=== PATIENT | female | born 1970 | race African-American/Black ===

== ENCOUNTER 2018-08-07 06:22 | Inpatient (IN) | payer BC ==
[2018-08-04 10:04] VITALS: BMI 33.8
[2018-08-07] MEDS ORDERED: HEPARIN NA (PORCINE) 5,000 UNITS/ML 1ML VIAL ONE (07:44)
[2018-08-07] MEDS ORDERED: THROMBIN (BOVINE) 5,000 UNIT VIAL TP ONE ×2 (07:44→10:07)
[2018-08-07] MEDS ORDERED: BENZOIN TINCTURE SWABSTICK TP ONE (07:44)
[2018-08-07] MEDS ORDERED: MIDAZOLAM HCL 2 MG/2 ML SINGLE DOSE VIAL ONE ×2 (07:59)
[2018-08-07] MEDS ORDERED: ROCURONIUM BROMIDE 50 MG/5 ML VIAL ONE (08:00)
[2018-08-07] MEDS ORDERED: fentaNYL CITRATE 250 MCG/5 ML VIAL ONE (08:00)
[2018-08-07] MEDS ORDERED: PROPOFOL 20 ML ONE ×20 (08:00→10:40)
[2018-08-07] MEDS ORDERED: SUCCINYLCHOLINE CHLORIDE 200 MG/10 ML VIAL ONE ×2 (08:03)
[2018-08-07] MEDS ORDERED: NEOSTIGMINE METHYLSULFATE 0.5 MG/1 ML - 10 ML MDV ONE (08:54)
[2018-08-07] MEDS ORDERED: ceFAZolin SODIUM 1 GM VIAL IVPB ONE (08:55)
[2018-08-07] MEDS ORDERED: VANCOMYCIN 1,000 MG VIAL (RESTRICTED TO ID ONLY) IVPB ONE (09:05)
[2018-08-07] MEDS ORDERED: ONDANSETRON 4 MG/2 ML VIAL ONE (09:27)
[2018-08-07] MEDS ORDERED: DEXAMETHASONE SOD PHOSPHATE 4 MG/1 ML VIAL ONE (09:27)
[2018-08-07] MEDS ORDERED: LIDOCAINE HCL/PF 2% SDV 5ML VIAL ONE (09:27)
[2018-08-07] MEDS ORDERED: TRANEXAMIC ACID 1000 MG/10 ML VIAL ONE (09:27)
[2018-08-07] MEDS ORDERED: ceFAZolin SODIUM 1 GM VIAL ONE (09:27)
[2018-08-07] MEDS ORDERED: GELATIN, ABSORBABLE 12-7MM EACH SPONGE TP ONE (10:08)
--- NOTE | 2018-08-07 12:22 | PN ---
Progress Note (short form) - Note Progress Note: 48F s/p C5-C6 anterior cervical discectomy and instrumented fusion POD #0. -Admit to ICU x 24 hrs. for airway observation; OK to discharge home or downgrade to floor 08/08/2018 if airway stable. -Maintain head of bed 45-60 degrees. -Pain medication: per anaesthesia team; oral meds (oxycodone preferred), no HIDE AND SKIN COLERER ; NO NSAID's. -DVT PPx: -Mechanical only: JULIETA's, SCD's. -Post-op Ancef x 2 doses. -f/u AM labs. -Incentive spirometry. -PT/OT/Rehab, OOB. -WBAT B/L UE & LE. -d/c Damian catheter at midnight; f/u TOV (8 hours max). -Keep dressing clean & dry. -No heavy lifting (>5 lbs), bending or twisting x 6 months post op. -Start with soft diet; advance diet as tolerated. -B/L UE & LE NV checks. -Care per ICU & primary medical hospitalist teams. -Discharge planning: f/u [facility] [place] office 08/17/2018; call for appointment; . Vernon Pitts MD (Orthopaedic Surgery).
--- NOTE | 2018-08-07 12:27 | OP ---
Operative Note - Note: Operative Date: 08/07/18 Pre-Operative Diagnosis: 1. C5-C6 intervertebral disc disorder with: a. Radiculopathy. b. Myelopathy Operation: 1. C5-C6 anterior cervical discectomy. 2. C5, C6 partial corpectomies. 3. C5-C6 anterior instrumentation. 4. C5-C6 anterior arthrodesis. 5. Bone autograft. 6. Bone allograft. 7. Intra-operative neural monitoring. 8. Intra-operative biplanar fluoroscopy Findings: After C5-C6 discectomy, residual indentation on anterior cervical spinal cord due to chronic stenosis. Implants: Cage: Fortilink Tetrafuse #8. Plate: Slimplicity 14mm. Screws: 4 x 3.5x12mm Surgeon: Vernon Pitts Coordinating Producer: Kev Pitts Anesthesiologist/BUSINESS APPLICATIONS SPECIALIST: Philomena Barragan MD Specimens Removed: C5-C6 disc Estimated Blood Loss (mls): 75 Fluid Volume Replaced (mls): 2,000 (Crystalloid) Operative Report Dictated: Yes
[2018-08-07] MEDS ORDERED: LACTATED RINGERS SOLUTION 1,000 ML IV SCH ×3 (12:30→16:12)
[2018-08-07] MEDS ORDERED: ONDANSETRON 4 MG/2 ML VIAL IVPUSH PRN ×2 (12:30→12:59)
[2018-08-07] MEDS ORDERED: oxyCODONE HCL 5 MG TABLET PO PRN (12:30)
[2018-08-07] MEDS ORDERED: HYDROmorphone HCL CARPU-JECT 2 MG/1 ML DISP.SYRIN SQ PRN (12:41)
[2018-08-07] MEDS ORDERED: DESFLURANE GAS 240 ML BOTTLE IH ONE (13:18)
--- NOTE | 2018-08-07 14:26 | CONSULT ---
Consultation: REQUESTING PROVIDER:Dr. Pitts CONSULT REQUEST: We have been asked to medically evaluate this patient for post- op airway monitoring. HISTORY OF PRESENT ILLNESS: Patient is a 48 year old female with no significant past medical history, R- hand dominant, presented with pain and weakness of the right arm at the C5-C6 dermatome, and C5 dermatome on the left. Patient was seen by Dr. Pitts and was diagnosed with cervical disc disorder at C5-C6 with radiculopathy. Patient is POD 0 C5-C6 anterior cervical discectomy and instrumented fusion. Currently patient is still sedated, responsive to voice, able to follow commands and denies any pain. REVIEW OF SYSTEMS: CONSTITUTIONAL: Absent: fever, chills, diaphoresis, generalized weakness, malaise, loss of appetite, weight change HEENT: Absent: rhinorrhea, nasal congestion, throat pain, throat swelling, difficulty swallowing, mouth swelling, ear pain, eye pain, visual changes CARDIOVASCULAR: Absent: chest pain, syncope, palpitations, irregular heart rate, lightheadedness , peripheral edema RESPIRATORY: Absent: cough, shortness of breath, dyspnea with exertion, orthopnea, wheezing, stridor, hemoptysis GASTROINTESTINAL: Absent: abdominal pain, abdominal distension, nausea, vomiting, diarrhea, constipation, melena, hematochezia GENITOURINARY: Absent: dysuria, frequency, urgency, hesitancy, hematuria, flank pain, genital pain MUSCULOSKELETAL: Absent: myalgia, arthralgia, joint swelling, back pain, neck pain SKIN: Absent: rash, itching, pallor HEMATOLOGIC/IMMUNOLOGIC: Absent: easy bleeding, easy bruising, lymphadenopathy, frequent infections ENDOCRINE: Absent: unexplained weight gain, unexplained weight loss, heat intolerance, cold intolerance NEUROLOGIC: Absent: headache, focal weakness or paresthesias, dizziness, unsteady gait, seizure, mental status changes, bladder or bowel incontinence PSYCHIATRIC: Absent: anxiety, depression, suicidal or homicidal ideation, hallucinations. PHYSICAL EXAMINATION Vital Signs - 24 hr 08/07/18 08/07/18 08/07/18 07:18 07:24 12:31 Temperature 98.2 F 98 F Pulse Rate 69 89 Respiratory 20 12 Rate Blood Pressure 146/92 140/78 O2 Sat by Pulse 100 100 Oximetry (%) 08/07/18 08/07/18 08/07/18 12:45 13:00 13:15 Temperature Pulse Rate 91 H 79 69 Respiratory 14 16 18 Rate Blood Pressure 145/79 150/84 155/92 O2 Sat by Pulse 100 100 100 Oximetry (%) 08/07/18 13:30 Temperature Pulse Rate 88 Respiratory 18 Rate Blood Pressure 160/87 O2 Sat by Pulse 100 Oximetry (%) GENERAL: sedated, responds to voice and follows commands, in no acute distress. HEAD: Normal with no signs of trauma. EYES: PERRLA, EOMI, sclera anicteric, conjunctiva clear. EARS, NOSE, THROAT: Dry mucous membranes. NECK: +dressing, clean dry and intact on the anterior neck LUNGS: Breath sounds equal, clear to auscultation bilaterally. HEART: Regular rate and rhythm, normal S1 and S2 without murmur, rub or gallop. ABDOMEN: Soft, nontender, not distended, normoactive bowel sounds. UPPER EXTREMITIES: 2+ pulses, warm, well-perfused. No peripheral edema. LOWER EXTREMITIES: 2+ pulses, warm, well-perfused. No peripheral edema. NEUROLOGICAL: Difficult to assess as patient is currently sedated, but is able to move arms and legs SKIN: Warm, dry, normal turgor, no rashes or lesions noted. Laboratory Results - last 24 hr 08/07/18 08/07/18 08/07/18 06:51 06:51 07:20 Serum , Qual Negative Blood Type O POSITIVE O POSITIVE Antibody Screen Negative Active Medications Generic Name Dose Route Start Last Admin Trade Name Freq PRN Reason Stop Dose Admin Hydromorphone HCl 1 mg 08/07/18 12:41 Dilaudid Injection - SQ Q6H PRN PAIN LEVEL 7 - 10 Lactated Ringer's 1,000 mls @ 125 mls/hr 08/07/18 12:30 Lactated Ringers Solution IV ASDIR EHSAN Cefazolin Sodium/Dextrose 2 gm in 50 mls @ 200 mls/hr 08/07/18 16:00 Ancef 2 Gm Premixed Ivpb - IVPB 08/07/18 18:14 Q8H-IV EHSAN Ondansetron HCl 4 mg 08/07/18 12:30 Zofran Injection IVPUSH Q6H PRN NAUSEA AND/OR VOMITING Ondansetron HCl 4 mg 08/07/18 12:59 Zofran Injection IVPUSH 08/08/18 12:58 Q6H PRN NAUSEA AND/OR VOMITING Oxycodone HCl 5 mg 08/07/18 12:30 Roxicodone - PO Q4H PRN PAIN LEVEL 1-5 Oxycodone HCl 10 mg 08/07/18 12:30 Roxicodone - PO Q4H PRN PAIN LEVEL 6-10 ASSESSMENT/PLAN: Patient is a 48 year old female who presented with cervical disc disorder s/p C5 -C6 anterior cervical discectomy. #Neuro -POD 0: C5-C6 anterior cervical discectomy and instrumented fusion -Pain control as per anesthesia. Oxycodone q4h and Dilaudid PRN for pain. -No NSAIDs -Maintain HOB 45-60 degrees -Ancef x2 doses post-op -Incentive spirometry -PT/OT/Rehab, OOB as tolerated -Keep dressing clean and dry -Start with soft diet, advance as tolerated -Bilateral UE/LE neurovascular checks. #Cardio -elevated blood pressure, maybe 2/2 pain -will continue to monitor #Renal -d/c potts catheter at midnight as per surgery -voiding trial #FEN -IV LR @125cc/hr -Routine bmp monitoring -Soft diet #Prophylaxis -TEDs and SCDs, no chemical ppx #Disposition -full code -ICU monitoring Dispo: We will continue to follow the patient. Thank you for this consultative opportunity. Visit type - Emergency Visit Emergency Visit: Yes ED Registration Date: 08/07/18 Care time: The patient presented to the Emergency Department on the above date and was hospitalized for further evaluation of their emergent condition. - New Patient This patient is new to me today: Yes Date on this admission: 08/07/18 - Critical Care Critical Care patient: Yes Total Critical Care Time (in minutes): 37 Critical Care Statement: The care of this patient involved high complexity decision making to prevent further life threatening deterioration of the patient 's condition and/or to evaluate & treat vital organ system(s) failure or risk of failure.
--- NOTE | 2018-08-07 15:25 | PN ---
Physical Exam: SUBJECTIVE: Patient seen and examined in ICU. POD 0 C5-C6 anterior cervical discectomy and instrumented fusion. Currently patient is still sedated, responsive to voice, able to follow commands and denies any pain. OBJECTIVE: Vital Signs Period Temp Pulse Resp BP Sys/Baker Pulse Ox Last 24 Hr 98 F-98.2 F 67-91 12-20 140-160/78-92 100-100 GENERAL: sedated, responds to voice and follows commands, in no acute distress. HEAD: Normal with no signs of trauma. EYES: PERRLA, sclera anicteric, conjunctiva clear. EARS, NOSE, THROAT: Dry mucous membranes. NECK: +dressing, clean dry and intact on the anterior neck LUNGS: Breath sounds equal, clear to auscultation bilaterally. HEART: Regular rate and rhythm, normal S1 and S2 without murmur, rub or gallop. ABDOMEN: Soft, nontender, not distended, normoactive bowel sounds. UPPER EXTREMITIES: 2+ pulses, warm, well-perfused. No peripheral edema. LOWER EXTREMITIES: 2+ pulses, warm, well-perfused. No peripheral edema. NEUROLOGICAL: Difficult to assess as patient is currently sedated, but is able to move fingers and toes. sensation grossly intact. hyperreflexia at biceps and patellar joints b/l SKIN: Warm, dry, normal turgor, no rashes or lesions noted. Laboratory Results - last 24 hr 08/07/18 08/07/18 08/07/18 06:51 06:51 07:20 Serum , Qual Negative Blood Type O POSITIVE O POSITIVE Antibody Screen Negative Active Medications Generic Name Dose Route Start Last Admin Trade Name Freq PRN Reason Stop Dose Admin Hydromorphone HCl 1 mg 08/07/18 12:41 Dilaudid Injection - SQ Q6H PRN PAIN LEVEL 7 - 10 Lactated Ringer's 1,000 mls @ 125 mls/hr 08/07/18 12:30 Lactated Ringers Solution IV ASDIR EHSAN Cefazolin Sodium/Dextrose 2 gm in 50 mls @ 200 mls/hr 08/07/18 16:00 Ancef 2 Gm Premixed Ivpb - IVPB 08/07/18 18:14 Q8H-IV EHSAN Ondansetron HCl 4 mg 08/07/18 12:30 Zofran Injection IVPUSH Q6H PRN NAUSEA AND/OR VOMITING Ondansetron HCl 4 mg 08/07/18 12:59 Zofran Injection IVPUSH 08/08/18 12:58 Q6H PRN NAUSEA AND/OR VOMITING Oxycodone HCl 5 mg 08/07/18 12:30 Roxicodone - PO Q4H PRN PAIN LEVEL 1-5 Oxycodone HCl 10 mg 08/07/18 12:30 Roxicodone - PO Q4H PRN PAIN LEVEL 6-10 ASSESSMENT/PLAN: 48 year old female PMH R shoulder surgery, who presented with cervical disc disorder s/p C5-C6 anterior cervical discectomy. #POD 0: C5-C6 anterior cervical discectomy and instrumented fusion -Pain control as per anesthesia. Tylenol/dilauded/Oxycodone q4h PRN for pain. -No NSAIDs -Maintain HOB 45-60 degrees -Ancef x2 doses post-op as per surgery team -Incentive spirometry -PT/OT/Rehab, OOB as tolerated -Keep dressing clean and dry -soft diet, advance as tolerated -Bilateral UE/LE neurovascular checks. -zofran for nausea monitor qtc #HTN - no previous hx of htn -elevated blood pressure, likely 2/2 pain -will continue to monitor -echo nl LV fnx, no sig valve dysfunction from paper chart #Renal -d/c potts catheter at midnight as per surgery -voiding trial #FEN -IV LR @125cc/hr -replete prn -Soft diet as tolerated #Ppx -TEDs and SCDs, no chemical ppx #Disposition -full code Dispo: ICU monitoring f/u [facility] office 08/17/2018; call for appointment; . Visit type - Emergency Visit Emergency Visit: Yes ED Registration Date: 08/07/18 Care time: The patient presented to the Emergency Department on the above date and was hospitalized for further evaluation of their emergent condition. - New Patient This patient is new to me today: Yes Date on this admission: 08/07/18 - Critical Care Critical Care patient: No
[2018-08-07] MEDS ORDERED: HYDROmorphone HCl 2 MG/ML VIAL SQ PRN (16:49)
[2018-08-07] MEDS: CEFAZOLIN 2 GM/D5W 2 GM/50 ML ML IVPB SCH ×2 (16:59→17:06)
--- NOTE | 2018-08-07 18:30 | PN ---
Teaching Attending Note Name of Resident: Titi López ATTENDING PHYSICIAN STATEMENT I saw and evaluated the patient. I reviewed the resident's note and discussed the case with the resident. I agree with the resident's findings and plan as documented. SUBJECTIVE: limited interview and exam due to lethargy after anesthesia. reports pain in throat. her feet are cold. No BOLAND , no CP or SOB. No abd pain. she has h/o C5-6 mylopathy and has underwent C5-6 discectomy, corpectomy, and instrumentation . Sh has h/o R shouler. she has chronic BOLAND for which she takes topamax . NO H/o HTN she is now in ICU OBJECTIVE: NAD, lethargic, responds to commands and answers questions . no facial droop. round equal pupils, 1mm in diameter, EOMI. no facial droop. dry MM. no JVD CV: RRR. no MRG lungs: CTAB anteriorly Abd: soft, hypoactive BS. NT, ND Ext: no edema or erythema on LE . DP 2+ b/l. warm feet Nuero : limited. no facial droop. round equal pupils, 1mm in diameter, EOMI. strength can't comply with exam, weak fist b/l. wiggle toes, inimal movement of ankles. Nl sensation b/l. 2+ knee jerk and biceps b/l . ASSESSMENT AND PLAN: 48 y/o lady with h/o C5-6 mylopathy due to disk disease, who presented for her sx. She is s/p C5-6 discectomy, corpectomy, and instrumentation. 1- S/P C5-6 discectomy, corpectomy, and instrumentation: POD 0 - still under effect of anesthesia. can't perform full neuro exam - soft diet - pain control . No NSAIDs - No chemical DVT PX - monitor neuro exam . 2- HTN urgency: due to pain . no h/o HTN. fluids were decreased and dilaudid was given. BP improved form 170/105 to 157/100. monitor . can use IV hydralazine or labetalol if needed for B/P > 170/100. 3- DVT px: SCDs
[2018-08-07] MEDS: ACETAMINOPHEN 1000 MG/100 ML VIAL (NON FORMULARY) IVPB PRN (20:10)
[2018-08-07] MEDS: oxyCODONE HCL 5 MG TABLET PO PRN (20:44)
[2018-08-08] MEDS: oxyCODONE HCL 5 MG TABLET PO PRN (04:56)
[2018-08-08 06:48] LABS: BASO % 0.1 % (0-2.0); HEMATOCRIT 34.4 % (32.4-45.2); HEMOGLOBIN 11.2 GM/dL (10.7-15.3); LYMPH % 7.3 % (8-40); MCH 26.8 pg (25.7-33.7); MCHC 32.7 g/dl (32.0-36.0); MEAN CELL VOLUME 82.1 fl (80-96); MEAN PLT VOLUME 9.5 fl (7.5-11.1); MONO % 7.6 % (3.8-10.2); PLATELET COUNT 215 K/MM3 (134-434); RBC 4.19 M/mm3 (3.60-5.2); RDW 14.5 % (11.6-15.6); WHITE BLOOD COUNT 9.3 K/mm3 (4.0-10.0)
[2018-08-08 07:09] LABS: ALBUMIN 3.2 g/dl (3.4-5.0); ALK PHOS 60 U/L (45-117); ANION GAP 5 MMOL/L (8-16); BILIRUBIN,TOTAL 0.5 mg/dL (0.2-1); BLOOD UREA NITROGEN 8 mg/dL (7-18); CALCIUM 8.7 mg/dL (8.5-10.1); CHLORIDE 104 mmol/L (98-107); CO2 29 mmol/L (21-32); CREATININE 0.6 mg/dL (0.55-1.3); GLUCOSE,RANDOM 100 mg/dL (74-106); PHOSPHOROUS 4.2 mg/dL (2.5-4.9); POTASSIUM 4.4 mmol/L (3.5-5.1); SGOT/AST 21 U/L (15-37); SGPT/ALT 26 U/L (13-61); SODIUM 138 mmol/L (136-145); TOT PROT 6.7 g/dl (6.4-8.2)
[2018-08-08] MEDS ORDERED: BENZOCAINE/MENTH/CETYLPYRD CL 1 EACH LOZENGE MM PRN (08:51)
[2018-08-08] MEDS: ACETAMINOPHEN 1000 MG/100 ML VIAL (NON FORMULARY) IVPB PRN (09:24)
--- NOTE | 2018-08-08 09:56 | OP ---
DATE OF OPERATION: 08/07/2018 SURGEON: Vernon Pitts MD COLDFUSION: Kev Pitts MD PREOPERATIVE DIAGNOSIS: 1. C5-C6 intervertebral disk disorder with associated A. Myelopathy. B. Radiculopathy. 2. Cervical spinal stenosis with neurogenic claudication. 3. Cervical kyphosis. 4. Segmental instability. 5. Disk osteophyte complex C5-C6. POSTOPERATIVE DIAGNOSIS: 1. C5-C6 intervertebral disk disorder with associated A. Myelopathy. B. Radiculopathy. 2. Cervical spinal stenosis with neurogenic claudication. 3. Cervical kyphosis. 4. Segmental instability. 5. Disk osteophyte complex C5-C6. SURGICAL PROCEDURE: 1. C5-C6 discectomy & anterior arthrodesis (22740). 2. C5, C6 partial corpectomies (39378, 31720). 3. Insertion of biomechanical device C5-C6 (67800). 4. C5-C6 anterior instrumentation (46811). 5. Bone autograft (63473). 6. Bone allograft (19491). 7. Intraoperative biplanar fluoroscopy. FINDINGS: After C5-C6 discectomy, residual indentation of the anterior cervical spinal cord due to chronic stenosis. IMPLANTS: 1. Cage: FortiLink Tetrafuse #8. 2. Plate: Precision Spine Simplicity 14 mm. 3. Screws: 4 x 3.5x12mm. ANESTHESIOLOGIST: Philomena Barragan MD ANESTHESIA: General endotracheal tube anesthesia. POSITION: Supine. INCISION: Right oblique anterior at level of cricothyroid interval. ESTIMATED BLOOD LOSS: 75cc. INTRAVENOUS FLUID: Crystalloid, 2L. SPECIMENS: C5-C6 disc. DRAINS: None. COMPLICATIONS: None. URINE OUTPUT: See anesthesia record. BACTERIOLOGY: None. CLOSURE: 2-0 Vicryl and 3-0 Biosyn absorbable suture. INDICATIONS: The patient is a 48-year-old female who was indicated for anterior cervical decompression and instrumented fusion to prevent the progression of already worsening neurological decline. The patient was identified in the holding area by her arm band. A long discussion was held with the patient regarding the risks, benefits, and alternatives of the above-named procedure. The risks include, but are not limited to: Pain, bleeding, infection, damage to surrounding structures (including nerves, blood vessels, skin, ligaments, tendons, and bone), dysphagia, dysphonia, nerve palsy, wound complications, pseudarthrosis, failure of fusion, failure of hardware/implants/reduction, need for further surgery, blood clots, myocardial infarction, pulmonary embolism, cerebrovascular event, anesthesia complications, neurological injury, loss of function, and . Benefits as mentioned above. Alternatives include no surgery. All questions were answered. The patient understood and agreed to the procedure. Informed consent was obtained, witnessed, and verified. The patient was taken to the operating room after being seen by the anesthesia and nursing staff. PROCEDURE: The patient was brought into the operating room, placed on the OR table and secured with a safety strap. Consent and the operative site was again verified with the patient and nursing and anesthesia staff. Anesthesia was then administered without complications including 2 g of IV Ancef, 1 g of IV vancomycin, and 1 g of TXA. A time-out was then done led by , the attending surgeon. The patient was positioned in the supine position with arms tucked and placed under gentle traction using tape over her shoulders. All bony prominences were very well padded. A bump was placed beneath the scapulae to facilitate extension of the patients neck. The cricothyroid interval was palpated, and a deep neck crease in the lines of Damaris at this level was targeted for incision. A C-arm fluoroscopy unit was positioned perpendicularly to the table and maintained at the level of the head, except when needed. Intra-operative neural monitoring revealed no change between pre- and post- positional SSEP & MEP baseline readings. The operative site was then prepped and draped in the standard sterile fashion using betadine prep and scrub, wiped off with alcohol, and Duraprep applied. Pre-operative imaging was available for intra-operative evaluation. Time-out was again done, and the case began. An oblique anterior incision was made on the right side of the patients neck in the lines of Damaris in standard fashion. Dissection was carried through the investing layer of fascia and finger palpation was used to create a plane lateral to the strap muscles between the carotid sheath and the viscera. Next, the esophagus and trachea were visualized as was the carotid sheath. Hand-held retractors were used to retract these structures safely out of the way, allowing direct access to the anterior cervical spine. The prevertebral fascia overlying the anterior cervical spine was then split using peanut swabs. An 18-gauge spinal needle was bent and used to localize the C5-C6 disc space under fluoroscopy. This helped us target the indicated surgical level. Next, the medial borders of the Longus Coli musculature were gently released over the anterolateral borders of the vertebral bodies and disc spaces using monopolar electrocautery. A self-retaining retractor system was used with the teeth of the blades retracting the belly of the longus coli muscles, and with the retractors themselves safely retracting the carotid sheath laterally and viscera medially. One 12mm [place] pin was then placed into the center of the vertebral bodies of C5 and C6. The Farragut pin placement was confirmed via fluorscopy. A [place] pin distractor system was applied with no distraction at this stage. Additionally, the distractor barrels served as superior and inferior soft tissue retractors. The microscope was then introduced. Using monopolar electrocautery, the annulus of the C5-C6 disc was incised. The disc was morselized using a curette and excised using a pituitary rongeur. Next, a 40mm smoothe tyson-tipped humberto was used to perform partial corpectomies of the caudal C5 vertebral body and the cephalad C6 vertebral body. This was necessary to facilitate adequate exposure and decompression of the spinal cord. Continuous cold saline solution was utilized throughout all humberto work. The resection of most remaining bone, and the posterior longitudinal ligament (PLL), was achieved utilizing Kerrison rongeur upcuts. A small, angled, ball-tipped probe was utilized to ensure that all PLL complex was free from adhesion to the theca prior to excision. There was no evidence of OPLL. The ball-tipped probe was also used to ensure that the bilateral C5-C6 neuroforaminae were patent. Our decompression of the cervical spine was successfully achieved. At this point, gentle distraction was applied to the Farragut pin distractor. Next, trial implants were placed into the defect space and a size 8 RTI Fortilink cage was then selected to fit the distracted space. The cage was filled with a combination of autologous bone shavings and demineralized bone matrix putty. The cage was then gently tapped into position. This completed the anterior arthrodesis. Farragut pin distraction was released, allowing ligamentotaxis to provide a snug interference fit of the cage. This was ensured by using a cage-arce. A 14- mm plate was utilized with 2 proximal and 2 distal screws measuring 12 mm to provide solid fixation. This, too, was demonstrated with a plate-arce once all instrumentation was satisfactorily seated. The screws were then locked using the plate-screw locking mechanism. Fluoroscopic images in the AP and lateral plane showed implants to be in good position and with good overall alignment of the cervical spine. Throughout the case, copious irrigation was performed, and hemostasis was assured. The wound was closed primarily using 2-0 Vicryl and 3-0 Biosyn sutures. A sterile compressive dressing was applied. Sponge and needle counts were correct at the end of the case, and I, the attending surgeon, was present and scrubbed throughout the case. The patient was then extubated by the anesthesia staff without incident or complications and was then transferred to the recovery room in stable condition having tolerated the procedure well. OVERALL COMMENTS: Overall the case went well. MEP & SSEP signals improved from baseline at the end of the case. MD CHICA Steward/[id number] MTDD
--- NOTE | 2018-08-08 10:25 | PN ---
Progress Note (short form) - Note Progress Note: Anesthesia postop note 48 y/o F s/p GA for ACDF C5C6 POD#1, vss, aaox3, pain fairly well controlled. No anesthesia complications.
--- NOTE | 2018-08-08 11:55 | PN ---
Teaching Attending Note Name of Resident: Marimar Mccabe ATTENDING PHYSICIAN STATEMENT I saw and evaluated the patient. I reviewed the resident's note and discussed the case with the resident. I agree with the resident's findings and plan as documented. SUBJECTIVE: Patient seen and examined in the ICU. Awake and alert. Mild RUE motor deficit that is chronic. Sore throat overnight that has improved. No CP or SOB. Intake & Output 08/05/18 08/06/18 08/07/18 08/08/18 23:59 23:59 23:59 23:59 Intake Total 2050 Output Total 2650 350 Balance -600 -350 Weight 193 lb 4.8 oz Last Vital Signs Temp Pulse Resp BP Pulse Ox 98.8 F 65 12 125/64 99 08/08/18 10:00 08/08/18 10:00 08/08/18 10:00 08/08/18 10:00 08/08/18 07:51 Active Medications Acetaminophen (Ofirmev Injection -) 1,000 mg IVPB Q6H PRN PRN Reason: PAIN LEVEL 6-10 Last Admin: 08/08/18 09:24 Dose: 1,000 mg Benzocaine/Menthol (Cepacol Lozenge -) 1 each MM PRN PRN PRN Reason: SORE THROAT Ondansetron HCl (Zofran Injection) 4 mg IVPUSH Q6H PRN PRN Reason: NAUSEA AND/OR VOMITING Ondansetron HCl (Zofran Injection) 4 mg IVPUSH Q6H PRN PRN Reason: NAUSEA AND/OR VOMITING Stop: 08/08/18 12:58 Oxycodone HCl (Roxicodone -) 5 mg PO Q4H PRN PRN Reason: PAIN LEVEL 1-5 Last Admin: 08/08/18 04:56 Dose: 5 mg Oxycodone HCl (Roxicodone -) 10 mg PO Q4H PRN PRN Reason: PAIN LEVEL 6-10 Gen: Awake and alert, NAD Neck: (-) JVD CV: RRR. no MRG Lungs: Clear to auscultation Abd: soft, hypoactive BS. NT, ND Ext: no edema or erythema on LE . DP 2+ b/l. warm feet Nuero: (-) no facial droop. Mild RUE deficit Laboratory Results - last 24 hr 08/08/18 08/08/18 05:30 05:30 WBC 9.3 RBC 4.19 Hgb 11.2 Hct 34.4 MCV 82.1 MCH 26.8 MCHC 32.7 RDW 14.5 Plt Count 215 MPV 9.5 Absolute Neuts (auto) 7.9 Neutrophils % 85.0 H Lymphocytes % 7.3 L Monocytes % 7.6 Eosinophils % 0.0 Basophils % 0.1 Nucleated RBC % 0 Sodium 138 Potassium 4.4 Chloride 104 Carbon Dioxide 29 Anion Gap 5 L BUN 8 Creatinine 0.6 Creat Clearance w eGFR 105.82 Random Glucose 100 Calcium 8.7 Phosphorus 4.2 Magnesium 2.0 Total Bilirubin 0.5 AST 21 ALT 26 Alkaline Phosphatase 60 Total Protein 6.7 Albumin 3.2 L ASSESSMENT AND PLAN: POD#1: S/P C5-6 discectomy, corpectomy, and instrumentation History of C5-6 mylopathy due to disk disease HTN - Follow Neuro exam - Soft diet - pain control - No NSAIDs - No chemical DVT PX - Floor Dr Du
--- NOTE | 2018-08-08 12:31 | PN ---
Physical Exam: SUBJECTIVE: Patient seen and examined at bedside this morning. No acute events overnight. This morning, patient was complaining of soreness around the area, but denies dysphagia or shortness of breath. OBJECTIVE: Vital Signs Temperature 98.8 F 08/08/18 10:00 Pulse Rate 65 08/08/18 12:00 Respiratory Rate 13 08/08/18 12:00 Blood Pressure 129/72 08/08/18 12:00 O2 Sat by Pulse Oximetry (%) 99 08/08/18 07:51 GENERAL: The patient is awake, alert, and fully oriented, in no acute distress. HEAD: Normal with no signs of trauma. EYES: PERRLA, EOMI, sclera anicteric, conjunctiva clear. ENT:oropharynx clear without exudates, moist mucous membranes. NECK:dressing is dry, clean and intact on the anterior neck LUNGS: Breath sounds equal, clear to auscultation bilaterally. HEART: Regular rate and rhythm, S1, S2 without murmur, rub or gallop. ABDOMEN: Soft, nontender, nondistended, normoactive bowel sounds. EXTREMITIES: 2+ pulses, warm, well-perfused, no edema. NEUROLOGICAL: Cranial nerves II through XII grossly intact. Motor strength 5/5 on all extremities except right hand sugar controller 4/5, sensation intact, DTRs +2, Normal speech, gait not observed. PSYCH: Normal mood, normal affect. SKIN: Warm, dry, normal turgor, no rashes or lesions noted Laboratory Results - last 24 hr 08/08/18 08/08/18 05:30 05:30 WBC 9.3 RBC 4.19 Hgb 11.2 Hct 34.4 MCV 82.1 MCH 26.8 MCHC 32.7 RDW 14.5 Plt Count 215 MPV 9.5 Absolute Neuts (auto) 7.9 Neutrophils % 85.0 H Lymphocytes % 7.3 L Monocytes % 7.6 Eosinophils % 0.0 Basophils % 0.1 Nucleated RBC % 0 Sodium 138 Potassium 4.4 Chloride 104 Carbon Dioxide 29 Anion Gap 5 L BUN 8 Creatinine 0.6 Creat Clearance w eGFR 105.82 Random Glucose 100 Calcium 8.7 Phosphorus 4.2 Magnesium 2.0 Total Bilirubin 0.5 AST 21 ALT 26 Alkaline Phosphatase 60 Total Protein 6.7 Albumin 3.2 L Active Medications Generic Name Dose Route Start Last Admin Trade Name Freq PRN Reason Stop Dose Admin Acetaminophen 1,000 mg 08/07/18 15:58 08/08/18 09:24 Ofirmev Injection - IVPB 1,000 mg Q6H PRN Administration PAIN LEVEL 6-10 Benzocaine/Menthol 1 each 08/08/18 08:51 Cepacol Lozenge - MM PRN PRN SORE THROAT Ondansetron HCl 4 mg 08/07/18 12:30 Zofran Injection IVPUSH Q6H PRN NAUSEA AND/OR VOMITING Ondansetron HCl 4 mg 08/07/18 12:59 Zofran Injection IVPUSH 08/08/18 12:58 Q6H PRN NAUSEA AND/OR VOMITING Oxycodone HCl 5 mg 08/07/18 12:30 08/08/18 04:56 Roxicodone - PO 5 mg Q4H PRN Administration PAIN LEVEL 1-5 Oxycodone HCl 10 mg 08/07/18 12:30 Roxicodone - PO Q4H PRN PAIN LEVEL 6-10 ASSESSMENT/PLAN: Patient is a 48 year old female who presented with cervical disc disorder s/p C5 -C6 anterior cervical discectomy. #Neuro -POD 1: C5-C6 anterior cervical discectomy and instrumented fusion -Tylenol and Oxycodone q4h and Dilaudid PRN for pain. -No NSAIDs -Maintain HOB 45-60 degrees -Incentive spirometry -PT/OT/Rehab, OOB as tolerated -Keep dressing clean and dry -Start with soft diet, advance as tolerated -Bilateral UE/LE neurovascular checks. #Cardio -BP wnl today -elevated blood pressure yesterday, maybe 2/2 pain -will continue to monitor #Renal -potts catheter d'carla #FEN -Not on any standing fluids -Electrolytes wnl, Routine bmp monitoring -Soft diet #Prophylaxis -TEDs and SCDs, no chemical ppx #Disposition -full code -transfer to med-surg Visit type - Emergency Visit Emergency Visit: Yes ED Registration Date: 08/07/18 Care time: The patient presented to the Emergency Department on the above date and was hospitalized for further evaluation of their emergent condition. - New Patient This patient is new to me today: No - Critical Care Critical Care patient: Yes Total Critical Care Time (in minutes): 35 Critical Care Statement: The care of this patient involved high complexity decision making to prevent further life threatening deterioration of the patient 's condition and/or to evaluate & treat vital organ system(s) failure or risk of failure.
--- NOTE | 2018-08-08 14:29 | PN ---
Teaching Attending Note Name of Resident: Titi López ATTENDING PHYSICIAN STATEMENT I saw and evaluated the patient. I reviewed the resident's note and discussed the case with the resident. I agree with the resident's findings and plan as documented. SUBJECTIVE: no fever or chills. pain in neck and throat with swallowing . no numbness or tingling. denies any weakness . feels better than yesterday OBJECTIVE: NAD,awake, pleasant no stridor, oropharynx with erythema and bruises CV: RRR. no MRG lungs: CTAB anteriorly Ext: no edema or erythema on LE . DP 2+ b/l. warm feet Nuero : strength 4/5 hand gold beater and biceps/triceps o n R side. 5/5 hand gold beater, biceps/triceps on L. 5/5 deltoid b/l. unable to perform shoulder shrug due to pain. LE : 5/5 in hip flexion, knee flexion /extension, and ankle plantar or dorsiflexion. reflexes 2+ knee jerk and biceps b/l . nl sensation to light touch ASSESSMENT AND PLAN: 48 y/o lady with h/o C5-6 mylopathy due to disk disease, who presented for her sx. She is s/p C5-6 discectomy, corpectomy, and instrumentation. 1- S/P C5-6 discectomy, corpectomy, and instrumentation: POD 1 tolerated diet, ambulated with PT. dc IV pain meds. cont with oxy and tylenol. f/u with Dr. Pitts avoid NSAIDs util instructed otherwise by Dr. Pitts 2- HTN urgency: due to painresolved. no need for out pt HTN meds. [facility]
--- NOTE | 2018-08-08 14:37 | DS ---
Physical Exam: SUBJECTIVE: Patient seen and examined in ICU. POD 1 C5-C6 anterior cervical discectomy and instrumented fusion. no acute events. pt w/o complaints and wants to go home. pt cleared by neuro surg for dc OBJECTIVE: Vital Signs Period Temp Pulse Resp BP Sys/Baker Pulse Ox Last 24 Hr 98.4 F-98.9 F 64-96 0-19 125-174/64-113 99-100 PHYSICAL EXAM GENERAL: AOX3 NAD HEAD: Normal with no signs of trauma. EYES: PERRLA, sclera anicteric, conjunctiva clear. EARS, NOSE, THROAT: Dry mucous membranes. NECK: +dressing, clean dry and intact on the anterior neck LUNGS: Breath sounds equal, clear to auscultation bilaterally. HEART: Regular rate and rhythm, normal S1 and S2 without murmur, rub or gallop. ABDOMEN: Soft, nontender, not distended, normoactive bowel sounds. UPPER EXTREMITIES: 2+ pulses, warm, well-perfused. No peripheral edema. LOWER EXTREMITIES: 2+ pulses, warm, well-perfused. No peripheral edema. NEUROLOGICAL: Cranial nerves II through XII grossly intact. Motor strength 5/5 on all extremities except right hand print journalist 4/5, sensation intact, hyperreflexia at biceps and patellar joints b/l. Normal speech, gait not observed. SKIN: Warm, dry, normal turgor, no rashes or lesions noted. LABS Laboratory Results - last 24 hr 08/08/18 08/08/18 05:30 05:30 WBC 9.3 RBC 4.19 Hgb 11.2 Hct 34.4 MCV 82.1 MCH 26.8 MCHC 32.7 RDW 14.5 Plt Count 215 MPV 9.5 Absolute Neuts (auto) 7.9 Neutrophils % 85.0 H Lymphocytes % 7.3 L Monocytes % 7.6 Eosinophils % 0.0 Basophils % 0.1 Nucleated RBC % 0 Sodium 138 Potassium 4.4 Chloride 104 Carbon Dioxide 29 Anion Gap 5 L BUN 8 Creatinine 0.6 Creat Clearance w eGFR 105.82 Random Glucose 100 Calcium 8.7 Phosphorus 4.2 Magnesium 2.0 Total Bilirubin 0.5 AST 21 ALT 26 Alkaline Phosphatase 60 Total Protein 6.7 Albumin 3.2 L HOSPITAL COURSE: Date of Admission:08/07/18 Date of Discharge: 08/08/18 48 year old female PMH R shoulder surgery, who presented with cervical disc disorder s/p C5-C6 anterior cervical discectomy. #POD 1: C5-C6 anterior cervical discectomy and instrumented fusion. surgery w/o complication. tolerating PO and ambulating -Pain controlled. pt tot be dcd w/ PO Tylenol/Oxycodone q6h PRN for pain. -No NSAIDs. pt told to stop home naproxen -colace for bowel regimen -s/p Ancef x2 doses post-op as per surgery team -seen by PT -Keep dressing clean and dry. pt can shower. avoid heavy lifting -spoke w/ Dr. Pitts and pt can be dc w/ f/u at [facility] office 08/17/2018 #HTN - no previous hx of htn -elevated blood pressure, likely 2/2 pain -echo nl LV fnx, no sig valve dysfunction from paper chart -full code pt is stable and ready for dc w/ appropriate f/u Minutes to complete discharge: 39 Discharge Summary Reason For Visit: CERVICAL DISC DISORDER AT C5-C6 LEVEL WITH RADICUL Condition: Stable - Instructions Diet, Activity, Other Instructions: you came in for surgery on your neck with Dr. Pitts. Please keep the surgical site clean and dry until you see Dr. Pitts. you can shower No heavy lifting (>5 lbs), bending or twisting for the next 6 months Please resume your home meds Please take oxycodone 5mg every 6 hours with Tylenol 325mg to help control your pain. you can take more tylenol but do not exceed more than 4 grams (4000mg) in 24 hours. Please avoid driving and drinking alcohol while taking oxycodone Do not take NSAIDs such as advil/ibuprofen or naproxen. Please follow up with Dr Pitts as to when you can resume these medications Please follow up with your primary care physician within 1 week [facility] call for appointment; . follow iwth your PCP in 1 week. yo need your blood pressure checked Referrals: Kev Pitts MD [Staff Physician] - 1 Week Disposition: HOME - Home Medications Comprehensive Discharge Medication List: Ambulatory Orders Acetaminophen [Tylenol] 325 mg PO Q4H 30 Days #180 capsule 08/08/18 Docusate Sodium [Colace -] 100 mg PO BID #60 capsule 08/08/18 Oxycodone HCl/Acetaminophen [Percocet 5-325 mg Tablet] 1 tab PO Q6H PRN #16 tablet MDD 4 tab a day 08/08/18 This patient is new to me today: Yes Date on this admission: 08/08/18 Emergency Visit: Yes ED Registration Date: 08/07/18 Care time: The patient presented to the Emergency Department on the above date and was hospitalized for further evaluation of their emergent condition. Critical Care patient: No - Discharge Referral Referred to [facility] No
[2018-08-08 15:03] VITALS: BP 148/76; PULSE 75; TEMP 98.7
--- NOTE | 2018-08-08 15:25 | PATH ---
Surgical Pathology Report Patient Name: CHINO HAGEN [facility]. Rec. #: [id number] /Age/Gender: 1970 (Age: 48) / F Account: [id number] Location: [facility] ACCOUNTS EXECUTIVE Taken: 08/07/2018 Received: 08/07/2018 Reported: 08/08/2018 Physicians: Vernon Pitts M.D. Specimen(s) Received C5/C6 DISC Clinical History Cervical disc disorder C5-C6 level with radiculopathy Final Diagnosis C5-C6 DISC, DISCECTOMY: FRAGMENTS OF FIBROCARTILAGINOUS TISSUE WITH DEGENERATIVE CHANGE. Electronically Signed Merry Giang M.D. Gross Description Received in formalin labeled "C5-C6 disc," is a 3.0 x 2.0 x 0.4 cm aggregate of neal fragments of fibrocartilaginous tissue. A tour sales representative portion is submitted in one cassette. /08/07/2018 saudi08/07/2018
== END 2018-08-08 15:48 | disposition home or self-care (01) | DRG 472 ==
LOC: JSAMEDAYSX 06:22 → JICU 13:55
PROVIDERS: ADMIT Orthopaedic Surgery Adult Reconstructive Orthopaedic Surgery; ATTEND Internal Medicine
PROC: 0RG10K0 Fusion of Cervical Vertebral Joint with Nonautologous Tissue Substitute, Anterior Approach, Anterior Column, Open Approach (ICD-10-PCS; 2018-08-07)
PROC: 0RB30ZZ Excision of Cervical Vertebral Disc, Open Approach (ICD-10-PCS; 2018-08-07)
PROC: 0MBC0ZZ Excision of Upper Spine Bursa and Ligament, Open Approach (ICD-10-PCS; 2018-08-07)
PROC: 00NW0ZZ Release Cervical Spinal Cord, Open Approach (ICD-10-PCS; 2018-08-07)
PROC: 4A11X4G Monitoring of Peripheral Nervous Electrical Activity, Intraoperative, External Approach (ICD-10-PCS; 2018-08-07)
PROC: B01BZZZ Fluoroscopy of Spinal Cord (ICD-10-PCS; 2018-08-07)
PROC: 0RG10A0 Fusion of Cervical Vertebral Joint with Interbody Fusion Device, Anterior Approach, Anterior Column, Open Approach (ICD-10-PCS; principal; 2018-08-07 08:00)
DX: M50.123 Cervical disc disorder at C6-C7 level with radiculopathy (principal); M50.022 Cervical disc disorder at C5-C6 level with myelopathy; M48.02 Spinal stenosis, cervical region; I16.0 Hypertensive urgency; E66.9 Obesity, unspecified; Z68.35 Body mass index [BMI] 35.0-35.9, adult; M40.292 Other kyphosis, cervical region; M53.2X2 Spinal instabilities, cervical region
CPT/HCPCS: 36415; 76000-TC-FY; 80053; 83735; 84100; 84703; 85025; 86850; 86900; 86901; 88304-TC; 94760; 97116-GP; 97162-GP; J0131; J1644